=== PATIENT | female | born 1980 | race Caucasian/White ===

== ENCOUNTER 2021-06-06 09:24 | Emergency (ER) | payer OTHER ==
[~2021-06-06] VITALS: Ht 182.9 cm; Wt 97.5 kg
[2021-06-06] MEDS ORDERED: NOHOMEMEDICATIONS (09:42)
[2021-06-06 11:24] VITALS: BP 119/72
== END 2021-06-06 11:25 | disposition home or self-care (01) ==
LOC: ER 09:24
DX: M54.2 Cervicalgia (principal); V49.9XXA Car occupant (driver) (passenger) injured in unspecified traffic accident, initial encounter; Y93.89 Activity, other specified; Y92.89 Other specified places as the place of occurrence of the external cause; Y99.8 Other external cause status